=== PATIENT | female | born 1985 | race American Indian/Alaskan Native ===

== ENCOUNTER 2020-06-02 00:48 | Emergency (ER) | payer OTHER ==
--- NOTE | 2020-06-02 01:48 | XRay Report ---
CHEST 1 VIEW 06/02/2020 12:42 AM INDICATION / CLINICAL INFORMATION: chest pain. COMPARISON: None available. FINDINGS: SUPPORT DEVICES: None. HEART / MEDIASTINUM: No significant abnormality. LUNGS / PLEURA: No significant pulmonary or pleural abnormality. No pneumothorax. ADDITIONAL FINDINGS: No significant additional findings. IMPRESSION: 1. No acute findings. Signer Name: Timothy Yang MD Signed: 06/02/2020 1:43 AM Workstation Name: [id number]
[2020-06-02] MEDS ORDERED: ONDANSETRON 4 MG/2 ML INJ IV ONE (02:29)
[2020-06-02] MEDS ORDERED: SODIUM CHLORIDE 0.9% 1000 ML 1,000 ML IV ONE ×2 (02:29→02:31)
[2020-06-02] MEDS ORDERED: FAMOTIDINE 20 MG/2 ML INJ IV ONE (02:29)
[2020-06-02] MEDS ORDERED: fentaNYL 100 MCG/2 ML INJ IV ONE (02:30)
--- NOTE | 2020-06-02 02:36 | Emergency Department Report ---
HPI - General Chief Complaint: Dyspnea/Respdistress Time Seen by Provider: 06/02/20 02:21 - [facility] HPI: Room 2 The patient is a 34-year-old female present with a chief complaint of nausea vomiting. The patient states for the past 2 to 3 days she is nausea and vomiting with burning chest pain. Patient states this causes her asthma to flareup. Patient admits to a cough productive of white sputum for the past 2 to 3 days. Patient admits to pleurisy. Patient denies history of fever or recent flights/long car trips. Patient denies dysuria or hematuria. Patient states her last formed bowel movement occurred approximately 2 to 3 days ago but she has passed liquid stool recently. The patient currently gives her pain a score of 9/10 ED Past Medical Hx - Past Medical History Hx Asthma: Yes - Surgical History Past Surgical History?: No - Family History Family history: no significant - Social History Smoking Status: Current Some Day Smoker Substance Use Type: None (Denies illicit drug), Alcohol (Occasional) - Medications Home Medications: Home Medications Medication Instructions Recorded Confirmed Last Taken Type Famotidine [Pepcid] 20 mg PO BID #30 tablet 06/02/20 Unknown Rx HYDROcodone/APAP 5-325 [[place] 1 - 2 each PO Q6HR PRN #10 tablet 06/02/20 Unknown Rx 5/325] Promethazine [Phenergan] 25 mg PO Q6HR PRN #20 tab 06/02/20 Unknown Rx Promethazine [Phenergan] 25 mg NV Q6HR PRN #5 supp.rect 06/02/20 Unknown Rx levoFLOXacin [Levaquin TAB] 500 mg PO QDAY #10 tablet 06/02/20 Unknown Rx ED Review of Systems ROS: Stated complaint: CHEST PAIN/EMESIS Other details as noted in HPI Constitutional: denies: fever Eyes: denies: eye pain ENT: denies: throat pain Respiratory: no symptoms reported Cardiovascular: chest pain Endocrine: no symptoms reported Gastrointestinal: abdominal pain, nausea, vomiting Genitourinary: denies: dysuria, hematuria Musculoskeletal: denies: back pain Neurological: denies: headache Physical Exam - Physical Exam Vital Signs: Vital Signs 06/02/20 01:11 Temperature 99.3 F Pulse Rate 129 H Respiratory 20 Rate Blood Pressure 133/95 [Left] O2 Sat by Pulse 99 Oximetry Physical Exam: GENERAL: The patient is well-developed well-nourished female lying on stretcher appearing to be in mild discomfort. [] HEENT: Normocephalic. Atraumatic. Extraocular motions are intact. Patient has moist mucous membranes. NECK: Supple. No meningitic signs are noted. There is no adenopathy noted. CHEST/LUNGS: Clear to auscultation. There is no respiratory distress noted. HEART/CARDIOVASCULAR: Regular. There is tachycardia. There is no gallop rub or murmur. ABDOMEN: Abdomen is diffusely tender to palpation. Patient has normal bowel sounds. There is no abdominal distention. SKIN: There is no rash. There is no edema. There is no diaphoresis. NEURO: The patient is awake, alert, and oriented. The patient is cooperative. The patient has no focal neurologic deficits. The patient has normal speech MUSCULOSKELETAL: There is no evidence of acute injury. ED Course Vital Signs 06/02/20 01:11 Temperature 99.3 F Pulse Rate 129 H Respiratory 20 Rate Blood Pressure 133/95 [Left] O2 Sat by Pulse 99 Oximetry ED Medical Decision Making - Lab Data Result diagrams: 06/02/20 03:00 06/02/20 03:00 Laboratory Tests 06/02/20 06/02/20 06/02/20 03:00 03:00 03:00 WBC 13.6 H RBC 3.92 Hgb 13.5 Hct 39.2 MCV 100 H MCH 35 H MCHC 35 H RDW 12.5 L Plt Count 366 Lymph % (Auto) 10.7 L [place] % (Auto) 8.0 H Eos % (Auto) 0.1 Baso % (Auto) 0.6 Lymph # (Auto) 1.5 [place] # (Auto) 1.1 H Eos # (Auto) 0.0 Baso # (Auto) 0.1 Seg Neutrophils % 80.6 H Seg Neutrophils # 11.0 H D-Dimer 286.31 H Sodium 137 Potassium 3.0 L Chloride 89.1 L Carbon Dioxide 23 Anion Gap 28 BUN 21 H Creatinine 1.4 H Estimated GFR 52 BUN/Creatinine Ratio 15 Glucose 151 H Calcium 10.0 Total Bilirubin 0.80 AST 43 H ALT 19 Alkaline Phosphatase 78 Total Creatine Kinase 93 CK-MB (CK-2) < 1.0 CK-MB (CK-2) Rel Index 1.0 Troponin T < 0.010 Total Protein 9.4 H Albumin 5.3 H Albumin/Globulin Ratio 1.3 Lipase 49 HCG, Qual Urine Color Urine Turbidity Urine pH Ur Specific [place] Urine Protein Urine Glucose (UA) Urine Ketones Urine Blood Urine Nitrite Urine Bilirubin Urine Ictotest Urine Urobilinogen Ur Leukocyte Esterase Urine WBC (Auto) Urine RBC (Auto) U Epithel Cells (Auto) Urine Mucus 06/02/20 06/02/20 03:00 03:04 WBC RBC Hgb Hct MCV MCH MCHC RDW Plt Count Lymph % (Auto) [place] % (Auto) Eos % (Auto) Baso % (Auto) Lymph # (Auto) [place] # (Auto) Eos # (Auto) Baso # (Auto) Seg Neutrophils % Seg Neutrophils # D-Dimer Sodium Potassium Chloride Carbon Dioxide Anion Gap BUN Creatinine Estimated GFR BUN/Creatinine Ratio Glucose Calcium Total Bilirubin AST ALT Alkaline Phosphatase Total Creatine Kinase CK-MB (CK-2) CK-MB (CK-2) Rel Index Troponin T Total Protein Albumin Albumin/Globulin Ratio Lipase HCG, Qual Negative Urine Color [place] Urine Turbidity Turbid Urine pH 5.0 Ur Specific [place] 1.026 Urine Protein 100 mg/dl Urine Glucose (UA) 50 Urine Ketones Neg Urine Blood Lg Urine Nitrite Neg Urine Bilirubin Sm Urine Ictotest Negative Urine Urobilinogen 2.0 Ur Leukocyte Esterase Neg Urine WBC (Auto) 50.0 H Urine RBC (Auto) 46.0 U Epithel Cells (Auto) 48.0 H Urine Mucus 3+ - EKG Data -: EKG Interpreted by [place] EKG shows normal: sinus rhythm Rate: tachycardia (128 bpm) - EKG Data When compared to previous EKG there are: previous EKG unavailable Interpretation: other (No ischemic changes seen) - Radiology Data Radiology results: report reviewed (CT chest, CT abdomen pelvis), image reviewed (CT chest, CT abdomen pelvis) [facility] [address] [place] [address] Cat Scan Report Signed Patient: DECLAN CORLEY MR#: [id number] 16 : 1985 Acct:[id number] Age/Sex: 34 / F ADM Date: 06/02/20 Loc: ED Attending Dr: Ordering Physician: JULIA CARRION MD Date of Service: 06/02/20 Procedure(s): CT abdomen pelvis w con Accession Number(s): [id number] cc: JULAI CARRION MD CT ABDOMEN AND PELVIS WITH CONTRAST INDICATION: Diffuse abdominal pain nausea vomit. TECHNIQUE: Axial CT images were obtained through the abdomen and pelvis after IV contrast. All CT scans at this location are performed using CT dose reduction for ALARA by means of automated exposure control. COMPARISON: None available. FINDINGS: LOWER CHEST: No significant abnormality. LIVER: Hepatomegaly with mild hepatic steatosis GALLBLADDER: No significant abnormality. BILE DUCTS: No significant abnormality. PANCREAS: No significant abnormality. SPLEEN: No significant abnormality. ADRENALS: No significant abnormality. RIGHT KIDNEY and URETER: No significant abnormality. LEFT KIDNEY and URETER: No significant abnormality. STOMACH and SMALL BOWEL: No significant abnormality. COLON: No significant abnormality. APPENDIX: Normal. PERITONEUM: No free fluid. No free air. No fluid collection. LYMPH NODES: No significant adenopathy. AORTA and ARTERIES: No significant abnormality. IVC and VEINS: No significant abnormality. URINARY BLADDER: No significant abnormality. REPRODUCTIVE ORGANS: 2 left ovarian follicular cyst measuring 2.6 and 2.1 cm. Uterus and right ovary within normal limits. ADDITIONAL FINDINGS: None. SKELETAL SYSTEM: No significant abnormality. IMPRESSION: 1. 2 left ovarian follicular cyst. No free fluid to suggest leakage or rupture. 2. Hepatomegaly and steatosis Signer Name: Timothy Yang MD Signed: 06/02/2020 5:04 AM Workstation Name: [id number] Transcribed By: TL Dictated By: Timothy Yang MD Electronically Authenticated By: Timothy Yang MD Signed Date/Time: 06/02/20503 DD/ 1 TD/TT: [place] [address] Cat Scan Report Signed Patient: DECLAN CORLEY MR#: [id number] 16 : 1985 Acct:[id number] Age/Sex: 34 / F ADM Date: 06/02/20 Loc: ED Attending Dr: Jaylin joyce Physician: JULIA CARRION MD Date of Service: 06/02/20 Procedure(s): CT angio chest Accession Number(s): [id number] cc: JULIA CARRION MD CTA CHEST WITH IV CONTRAST INDICATION: Chest pain, pleurisy. TECHNIQUE: Axial CT images were obtained through the chest after injection of 75 cc IV contrast. 3 plane MIP reconstructions were produced. All CT scans at this location are performed using CT dose reduction for ALARA by means of automated exposure control. COMPARISON: None available. FINDINGS: PULMONARY ARTERIES: No pulmonary emboli. THORACIC AORTA: No acute abnormality. HEART: Normal. CORONARY ARTERIES: No significant calcification. PLEURA: No pleural effusion. No pneumothorax. LYMPH NODES: Calc ified subcarinal lymph node LUNGS: No acute air space or interstitial disease. Calcified right lower lobe granuloma. ADDITIONAL FINDINGS: None. UPPER ABDOMEN: No acute findings. SKELETAL STRUCTURES: No significant osseous abnormality. IMPRESSION: 1. No CT evidence for pulmonary embolism. 2. No acute findings. 3. Prior granulomatous disease Signer Name: Timothy Yang MD Signed: 06/02/2020 5:02 AM Workstation Name: [id number] Transcribed By: SHY Dictated By: Timtohy Yang MD Electronically Authenticated By: Timothy Yang MD Signed Date/Time: 06/02/20501 DD/ 050 TD/TT: - Differential Diagnosis GERD, gastritis, pancreatitis, peptic ulcer disease, SBO, PE Critical care attestation.: If time is entered above; I have spent that time in minutes in the direct care of this critically ill patient, excluding procedure time. ED Disposition Clinical Impression: Acute abdominal pain, Nausea & vomiting, UTI (urinary tract infection), Hypokalemia, Ovarian cyst Disposition: DC- TO HOME OR SELFCARE Is pt being admited?: No Does the pt Need Aspirin: No Condition: Stable Instructions: Nausea and Vomiting, Adult, Ovarian Cyst, [id number], Abdominal Pain, Adult, [id number] Additional Instructions: Return to the emergency department should you develop worsening symptoms, inability to tolerate food or liquids, high fever or any other concerns Prescriptions: levoFLOXacin [Levaquin TAB] 500 mg PO QDAY #10 tablet HYDROcodone/APAP 5-325 [[place] 5/325] 1 - 2 each PO Q6HR PRN #10 tablet PRN Reason: Pain Famotidine [Pepcid] 20 mg PO BID #30 tablet Promethazine [Phenergan] 25 mg PO Q6HR PRN #20 tab PRN Reason: Nausea Promethazine [Phenergan] 25 mg NV Q6HR PRN #5 supp.rect PRN Reason: Vomiting Referrals: TORI KUO MD [Staff Physician] - 3-5 Days (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 Please follow-up with him for further evaluation) Time of Disposition: 05:22
[2020-06-02 03:22] LABS: Basophils # (Auto) 0.1 K/mm3 (0.0-0.1); Basophils % (Auto) 0.6 % (0.0-1.8); Eosinophils % (Auto) 0.1 % (0.0-4.3); Hematocrit 39.2 % (30.3-42.9); Hemoglobin 13.5 gm/dl (10.1-14.3); Lymphocytes # (Auto) 1.5 K/mm3 (1.2-5.4); Lymphocytes % (Auto) 10.7 % (13.4-35.0); Mean Corpuscular HGB Conc 35 % (30-34); Mean Corpuscular Volume 100 fl (79-97); Monocytes # (Auto) 1.1 K/mm3 (0.0-0.8); Platelet Count 366 K/mm3 (140-440); Red Blood Count 3.92 M/mm3 (3.65-5.03); Red Cell Distribution Width 12.5 % (13.2-15.2)
[2020-06-02 03:24] LABS: Bilirubin,Urine SM (Negative); Blood,Urine LG (Negative); Color,Urine Amber (Yellow); Mucus,Urine 3+ /HPF
[2020-06-02 03:34] LABS: Ictotest,Urine Negative (Negative)
[2020-06-02 03:40] LABS: Alanine Aminotransferase 19 units/L (7-56); Albumin 5.3 g/dL (3.9-5); BUN/Creatinine Ratio 15; Blood Urea Nitrogen 21 mg/dL (7-17); Creatine Kinase MB < 1.0 ng/mL (0.0-4.0); Hemolysis Index 2
[2020-06-02] MEDS ORDERED: cefTRIAXone/NS 1 GM/50 ML 1 GM/50 ML BAG IV ONE (03:46)
[2020-06-02] MEDS: POTASSIUM CHLORIDE 10 MEQ 10 MEQ/100 ML BAG IV SCH ×2 (04:56→07:02)
--- NOTE | 2020-06-02 05:07 | Cat Scan Report ---
CTA CHEST WITH IV CONTRAST INDICATION: Chest pain, pleurisy. TECHNIQUE: Axial CT images were obtained through the chest after injection of 75 cc IV contrast. 3 plane MIP rec onstructions were produced. All CT scans at this location are performed using CT dose reduction for [place] by means of automated exposure control. COMPARISON: None available. FINDINGS: PULMONARY ARTERIES: No pulmonary emboli. THORACIC AORTA: No acute abnormality. HEART: Normal. CORONARY ARTERIES: No significant calcification. PLEURA: No pleural effusion. No pneumothorax. LYMPH NODES: Calcified subcarinal lymph node LUNGS: No acute air space or interstitial disease. Calcified right lower lobe granuloma. ADDITIONAL FINDINGS: None. UPPER ABDOMEN: No acute findings. SKELETAL STRUCTURES: No significant osseous abnormality. IMPRESSION: 1. No CT evidence for pulmonary embolism. 2. No acute findings. 3. Prior granulomatous disease Signer Name: Timothy Yang MD Signed: 06/02/2020 5:02 AM Workstation Name: [id number]
--- NOTE | 2020-06-02 05:09 | Cat Scan Report ---
CT ABDOMEN AND PELVIS WITH CONTRAST INDICATION: Diffuse abdominal pain nausea vomit. TECHNIQUE: Axial CT images were obtained through the abdomen and pelvis after IV contrast. All CT scans at this location are performed using CT dose reduction for ALARA by means of automated exposure control. COMPARISON: None available. FINDINGS: LOWER CHEST: No significant abnormality. LIVER: Hepatomegaly with mild hepatic steatosis GALLBLADDER: No significant abnormality. BILE DUCTS: No significant abnormality. PANCREAS: No significant abnormality. SPLEEN: No significant abnormality. ADRENALS: No significant abnormality. RIGHT KIDNEY and URETER: No significant abnormality. LEFT KIDNEY and URETER: No significant abnormality. STOMACH and SMALL BOWEL: No significant abnormality. COLON: No significant abnormality. APPENDIX: Normal. PERITONEUM: No free fluid. No free air. No fluid collection. LYMPH NODES: No significant adenopathy. AORTA and ARTERIES: No significant abnormality. IVC and VEINS: No significant abnormality. URINARY BLADDER: No significant abnormality. REPRODUCTIVE ORGANS: 2 left ovarian follicular cyst measuring 2.6 and 2.1 cm. Uterus and right ovary within normal limits. ADDITIONAL FINDINGS: None. SKELETAL SYSTEM: No significant abnormality. IMPRESSION: 1. 2 left ovarian follicular cyst. No free fluid to suggest leakage or rupture. 2. Hepatomegaly and steatosis Signer Name: Timothy Yang MD Signed: 06/02/2020 5:04 AM Workstation Name: [id number]
[2020-06-02] MEDS ORDERED: POTASSIUM CHLORIDE ER 20 MEQ TAB PO ONE (05:15)
[2020-06-02 07:30] VITALS: BP 122/88
--- NOTE | 2020-06-02 10:16 | Electrocardiograph Report ---
[facility] Test Date: 2020-06-02 Test Time: 01:01:29 Pat Name: DECLAN CORLEY Department: Room: Gender: F Re Recording Mixer: Toro AVILES : 1985 Requested By: JULIA CARRION Order Number: [id number] Reading MD: Cameron Mckeon Measurements Intervals [place] Rate: 128 P: 84 W[place]: 129 QRS: 28 QRSD: 86 T: 22 QT: 337 QTc: 493 Interpretive Statements Sinus tachycardia No previous ECG available for comparison Electronically Signed On 06-02-2020 7:16:08 PDT by Cameron Mckeon
== END 2020-06-02 07:29 | disposition home or self-care (01) ==
LOC: ED 00:48
DX: N39.0 Urinary tract infection, site not specified (principal); E87.6 Hypokalemia; N83.201 Unspecified ovarian cyst, right side; J45.909 Unspecified asthma, uncomplicated; F17.200 Nicotine dependence, unspecified, uncomplicated; F12.10 Cannabis abuse, uncomplicated; Z79.899 Other long term (current) drug therapy
CPT/HCPCS: 36415; 71045; 71275; 74177; 80053; 81001; 82550; 82553; 83690; 84484; 84703; 85025; 85379; 87086; 93005; 96361; 96365; 96375; 99285; J0696; J2405; J3010; J3480; J7030; Q9967